=== PATIENT | male | born 1955 | race Caucasian/White ===

== ENCOUNTER 2016-12-19 12:25 | Emergency (ER) | payer OTHER ==
[~2016-12-19] VITALS: Ht 182.9 cm; Wt 85.0 kg
[2016-12-19 14:52] VITALS: BP 149/70
== END 2016-12-19 14:54 | disposition home or self-care (01) ==
LOC: ED 13:26
DX: M54.2 Cervicalgia (principal); I10 Essential (primary) hypertension; E11.9 Type 2 diabetes mellitus without complications; Z87.891 Personal history of nicotine dependence
CPT/HCPCS: 70450; 72125; 93005

== ENCOUNTER → 2018-12-18 | Outpatient (CLI) | payer MEDICARE, MEDICAID | END | disposition home or self-care (01) | LOC: CFH 09:59 | PROVIDERS: ATTEND Internal Medicine | DX: R22.2 Localized swelling, mass and lump, trunk (principal) | CPT/HCPCS: 76705 ==

== ENCOUNTER 2020-07-19 10:11 | Emergency (ER) | payer MEDICARE, OTHER ==
[~2020-07-19] VITALS: Ht 177.8 cm; Wt 88.5 kg
--- NOTE | 2020-07-19 10:18 | NUR ---
NO ANSWER FROM LOBBY FOR TRIAGE.
--- NOTE | 2020-07-19 10:50 | NUR ---
ASSUMED CARE OF PATIENT. PT IS A 64 MALE C/O URINARY RETENTION. HE HAS BEEN UNABLE TO VOID SINCE LAST NIGHT. DAUGHTER AT BEDSIDE. PT IS VERY UNCOMFORTABLE. LABS DRAWN AND PROVIDER HAS BEEN AT BEDSIDE.
[2020-07-19 11:26] LABS: BASOPHILS % (AUTO) 0 % (0-1); EOSINOPHILS % (AUTO) 1 % (1-7); LYMPHOCYTES % (AUTO) 23 % (22-44); MEAN CORPUSCULAR HEMOGLOBIN 31.6 pg (27.5-34.5); MEAN CORPUSCULAR HGB CONC 35.2 g/dL (33.2-36.2); MEAN PLATELET VOLUME 7.9 fL (7.4-10.4); MONOCYTES % (AUTO) 6 % (2-9); NEUTROPHILS % (AUTO) 69 % (42-75); PLATELET COUNT 267 x10^3/uL (130-400); RED BLOOD COUNT 5.52 x10^6/uL (4.38-5.82); RED CELL DISTRIBUTION WIDTH 13.7 % (9.4-14.8)
[2020-07-19 11:33] LABS: ALBUMIN 4.2 g/dL (3.4-5.0); ANION GAP 8 mmol/L (5-15); CHLORIDE 103 mmol/L (98-107)
[2020-07-19 11:34] LABS: CREATININE 0.97 mg/dL (0.7-1.3)
--- NOTE | 2020-07-19 11:37 | NUR ---
ANDERS CATHETER INSERTED WTIH STERILE PROCEDURE, URINE WALKED TO LAB, 1200ML DRAINED SO FAR. DAUGHTER AT BEDSIDE. PATIENT STATED HE IS FEELING MUCH BETTER AND THE PAIN IS DECREASING. 11/03 CURRENTLY
[2020-07-19 11:53] LABS: MD NO
[2020-07-19] MEDS ORDERED: LIDOCAINE 2%,20 ML JEL.PF.APP MM ONE (12:00)
--- NOTE | 2020-07-19 12:10 | NUR ---
REPORT GIVEN TO VEITA OGLESBY FOR LUNCH
[2020-07-19 12:15] LABS: MICROSCOPIC AUTO
--- NOTE | 2020-07-19 12:43 | NUR ---
TASK RN NOTE: LEG BAG APPLIED FOR PT. RN HELPED PT DRESS. EDUCATION ON LEG BAG PROVIDED BY RN AND QUE. AWAITING DC PAPERS.
[2020-07-19 12:51] VITALS: BP 142/83
== END 2020-07-19 12:53 | disposition home or self-care (01) ==
LOC: ED 12:24
DX: R33.9 Retention of urine, unspecified (principal); I10 Essential (primary) hypertension; E11.9 Type 2 diabetes mellitus without complications; Z79.899 Other long term (current) drug therapy; Z87.891 Personal history of nicotine dependence
CPT/HCPCS: 36415; 51702; 80048; 81001; 82040; 85025; 99284

== ENCOUNTER 2020-07-21 06:31 | Emergency (ER) | payer MEDICARE, OTHER ==
[~2020-07-21] VITALS: Ht 182.9 cm; Wt 87.5 kg
--- NOTE | 2020-07-21 07:47 | NUR ---
flushed conley with 300 ml ns. able to flush and pull back clear fluid with out resistance. pt stated less pain.
[2020-07-21 08:51] VITALS: BP 142/68
== END 2020-07-21 08:58 | disposition home or self-care (01) ==
LOC: ED 06:54
DX: N40.1 Benign prostatic hyperplasia with lower urinary tract symptoms (principal); R33.8 Other retention of urine; I10 Essential (primary) hypertension; E11.9 Type 2 diabetes mellitus without complications
CPT/HCPCS: 99281

== ENCOUNTER 2020-07-22 17:00 | Emergency (ER) | payer OTHER, MEDICARE ==
[~2020-07-22] VITALS: Ht 172.7 cm; Wt 82.3 kg
--- NOTE | 2020-07-22 17:23 | NUR ---
PT TO ROOM 20 W/ C/O CLOTTING/RED TINGED BLOOD IN CATHETER. NO URINE DRAINAGE NOTED. STATES HE HAS BEEN SEEN HERE X 3 TIMES AND YESTERDAY DID NOT HAVE ANDERS CHANGED BUT SIMPLY IRRIGATED. PT DOES NOT KNOW IF HE HAS BPH. DENIES ABD PAIN/DISTENTION. BLADDER SCANNER SHOWS 83 ML URINE. ABDOMEN SOFT ON PALPATION. PT RESTING ON GURNEY. NADN. MONITORS APPLIED.
[2020-07-22] MEDS ORDERED: LIDOCAINE 2%,20 ML JEL.PF.APP MM ONE ×2 (17:48→18:30)
[2020-07-22] MEDS ORDERED: HYDROmorphone 1 MG/ML, 1ML INJ ONE (17:48)
--- NOTE | 2020-07-22 18:13 | NUR ---
NEW ANDERS PLACED. IN DEPTH EDUCATION PROVIDED ON ANDERS CARE. PT AND FMAILY VERBALIZES UNDERSTANDING.
[2020-07-22] MEDS ORDERED: HYDROmorphone 1 MG/ML, 1ML INJ IM ONE (18:30)
--- NOTE | 2020-07-22 18:50 | NUR ---
BEDSIDE REPORT GIVEN TO SHAMIKA MCGEE RN.
--- NOTE | 2020-07-22 18:51 | NUR ---
BEDSIDE REPORT FROM BOO RN, PT CARE TRANSFERRED AT THIS TIME. PT NAD, RESTING ON GURNEY, APPEARS COMFORTABLE, UPDATED ON POC, BED IN LOWEST, CALL LIGHT ON LAP, SON AT BEDSIDE. PT DENIES ADDITIONAL QUESTIONS OR NEEDS AT THIS TIME. WCTM. PT UP FOR RECHECK
[2020-07-22 19:43] VITALS: BP 168/87
== END 2020-07-22 19:58 | disposition home or self-care (01) ==
LOC: ED 17:43
DX: N40.1 Benign prostatic hyperplasia with lower urinary tract symptoms (principal); R33.8 Other retention of urine; E11.9 Type 2 diabetes mellitus without complications; I10 Essential (primary) hypertension
CPT/HCPCS: 51702; 96372; 99284; J1170